=== PATIENT | male | born 1990 | race Caucasian/White ===

== ENCOUNTER 2019-06-29 19:51 | Emergency (ER) | payer SELFPAY ==
[~2019-06-29] VITALS: Ht 165.1 cm; Wt 56.8 kg
[2019-06-29] MEDS ORDERED: MORGIDOX 1X100100 MG PO (21:13)
[2019-06-29 21:18] VITALS: BP 134/80
== END 2019-06-29 21:18 | disposition home or self-care (01) ==
LOC: ED 19:51
DX: S61.217A Laceration without foreign body of left little finger without damage to nail, initial encounter (principal); Z23 Encounter for immunization
CPT/HCPCS: 90715

== ENCOUNTER 2021-01-04 19:45 | Emergency (ER) | payer OTHER ==
[~2021-01-04 19:45] MED LIST: MORGIDOX 1X100100 MG PO
[2021-01-04 19:52] VITALS: BP 155/80
== END 2021-01-04 22:04 | disposition left against medical advice (07) ==
LOC: ED 19:45
DX: M25.512 Pain in left shoulder (principal); M54.9 Dorsalgia, unspecified; F17.200 Nicotine dependence, unspecified, uncomplicated; Z88.1 Allergy status to other antibiotic agents; V89.2XXA Person injured in unspecified motor-vehicle accident, traffic, initial encounter